=== PATIENT | male | born 1995 | race Caucasian/White ===

== ENCOUNTER 2017-03-21 17:40 | Emergency (ER) | payer SELFPAY ==
[2017-03-21] MEDS ORDERED: Lidocaine 1% MPF wEPI 200,000* 30 ML SDV INJ ONE (18:27)
[2017-03-21] MEDS ORDERED: Acetaminophen TAB* 325 MG PO ONE (19:07)
--- NOTE | 2017-03-21 19:09 | UC ---
Kenyon Gupta Thomas, scribed for Viry Winchester MD on 03/21/17 at 1818 . Laceration HPI - HPI Summary HPI Summary: The pt is a 21 y/o M referred from [facility] c/o with a laceration to his forehead. He was playing basketball when he was struck in the head by an elbow today at 16:30. He says that there was a lot of blood shortly after the accident. He applied pressure to the laceration with his shirt shortly after the injury. The pain is rated 2/10. 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 He complains of a headache byt the cut. Pt denies LOC, blood out of ears/nose/mouth, vision problems. No neck or lna pain. No LOC. No other injuries or complaints. Pt was given a tdap at [facility]. He is not on any blood thinners. He did not take any Adderall today, and he did not drink any alcohol today. Patients medication reviewed this visit. - History Of Current Complaint Chief Complaint: UCLaceration Stated Complaint: FACE LACERATION Time Seen by Provider: 03/21/17 17:56 Hx Obtained From: Patient Laceration Location: Head - forehead Mechanism Of Injury: Blunt Trauma - by elbow Onset/Duration: Sudden Onset, Lasting Hours - onset three hours ago, Still Present Pain Intensity: 2 Pain Scale Used: 0-10 Numeric Aggravating Factors: Movement Related History: Other: - He took an elbow to his head playing basketball - Allergies/Home Medications Allergies/Adverse Reactions: Allergies Allergy/AdvReac Type Severity Reaction Status Date / Time No Known Allergies Allergy Verified 03/21/17 18:02 Home Medications: Home Medications Amphetamine MIXED SALT TAB* [Adderall TAB*] 20 mg PO DAILY PRN 03/21/17 [ History Confirmed 03/21/17] PMH/Surg Hx/FS Hx/Imm Hx Previously Healthy: Yes Endocrine History: Other Other Endocrine History: NEG: thyroid disease Respiratory History: Other Other Respiratory History: NEG: asthma - Surgical History Surgical History: None - Family History Known Family History: Negative: Hypertension, Diabetes - Social History Occupation: Student Lives: Dormitory/Roommates - off campus house with housemates Alcohol Use: Weekly Substance Use Type: Marijuana Smoking Status (MU): Never Smoked Tobacco - Immunization History Most Recent Tetanus Shot: today Review of Systems Constitutional: Other - NEG: fever Skin: Other - Laceration to forehead ENT: Other - NEG: blood out of ears/nose/mouth Musculoskeletal: Other: - neg back, neck pain Neurological: Headache, Other - NEG: LOC All Other Systems Reviewed And Are Negative: Yes Physical Exam Triage Information Reviewed: Yes Appearance: Well-Appearing, No Pain Distress, Well-Nourished Vital Signs: Initial Vital Signs Temp 98.6 F 03/21/17 17:56 Pulse 70 03/21/17 17:56 Resp 20 03/21/17 17:56 BP 104/66 03/21/17 17:56 Pulse Ox 100 03/21/17 17:56 Vital Signs Reviewed: Yes Eye Exam: Normal Eyes: Positive: Conjunctiva Clear, Other: - WALLACE, EOM intact and full No injection no crepitus no step offs minimal discomfort with palpation over wound ENT Exam: Normal ENT: Positive: Normal ENT inspection, Hearing grossly normal, Pharynx normal, TMs normal, Other: - no hemotymp b/l No septal hematoma b/l no TMJ pain Dental Exam: Normal Neck exam: Normal Neck: Positive: Supple, Nontender, No Lymphadenopathy, Other: - no pain c/t/l/s Respiratory Exam: Normal Respiratory: Positive: Chest non-tender, Lungs clear, Normal breath sounds, No respiratory distress, No accessory muscle use Cardiovascular Exam: Normal Cardiovascular: Positive: RRR, No Murmur, Pulses Normal Abdominal Exam: Normal Abdomen Description: Positive: Nontender, No Organomegaly, Soft Musculoskeletal Exam: Normal Neurological Exam: Normal Psychological Exam: Normal Skin Exam: Other - pt with 2.5cm laceration over and including mid to lateral 1/ 3 eyebrow. wound gap 1cm no active bleeding - wound horizontal plane no extension through brow or eyelid no loss of facial muscle movement Laceration Repair - Laceration Repair 1 Description: Linear - Pt preppred in sterile conditioin wound with good approximation and closure d/w pt at length wound care, injected with 1% lidocaine total 3ml under sterile condition irrigated wuth 250ml saline under pressure 1 chromic gut suture with for subcutaneous tissue approximation skin closed with simple interrupted 6-0 prolene s/s infection suture remove return precautions pt states understanding Laceration Size After Repair: Length (cm) - 2.5, Width (mm) - 10 Modified For Repair: No Type Injection: Local Anesthesia Used: 1.0% Lido - 1.5 Additive Used (in ml): Epi Cleansing Completed Via Routine Prep: Yes Irrigation With Pressure Irrigation Device: Yes Closure Material: Sutures Closure Method: Multilayer Suture Of: Skin Suture Type: Prolene, Other - chromic gut - 4-0 suture - #1 6-0 prolene #7 Laceration Course/Dx - Course/Dx Course Of Treatment: The pt is a 21 y/o M referred from [facility] c/ o with a laceration to his forehead. He was playing basketball when he was struck in the head by an elbow today at 16:30. He complains of a headache. Pt denies LOC, blood out of ears/nose/mouth, vision problems. Pt with laceration to left upper eye brown. suture with good approximation. Pt tolerated well. d /w pt wound care. s/s infection. keflex. suture care and removal discussed. Offered to speak with pt's parents, pt declined. Pt has housemates that will be home tonight - Differential Dx - Laceration/Wound Provider Diagnoses: facial laceration Discharge - Discharge Plan Condition: Stable Disposition: HOME Prescriptions: Cephalexin CAP* [Keflex CAP*] 250 mg PO TID #15 cap Patient Education Materials: Facial Laceration (ED) Referrals: No Primary Care Phys,NOPCP [Primary Care Provider] - [facility] [Provider Group] Additional Instructions: - your stitches should come out in 4-5 days - you can return here, go to your Doctor or any urgent care center - okay to alternate ibuprofin (advil, motrin) and tylenol every 3hours as needed for pain -Keep your wound clean and dry - no soaking for 24 hours. Then, okay for wound to get wet - pat dry, don't rub -apply a thin layer of antibiotic ointment (neosporin, polysporin) 2-3 times a day - when you have a cut, you will have a scar. To minimize scar formation - keep your wound clean - monitor for signs of infection - reddness, red streaking, odor, green drainage -Once sutures out - keep your wound out of direct sun (wear a hat or sun screen ) - it may take up to 8 months for your scar to reach its final state - Contact your doctor or return here with questions or concerns - Go to the [facility] on campus or return if you have questions or concerns The documentation as recorded by the Kenyon haro Thomas accurately reflects the service I personally performed and the decisions made by me, Viry Winchester MD.
== END 2017-03-21 19:24 | disposition home or self-care (01) ==
LOC: UCEAST 17:40
DX: S01.81XA Laceration without foreign body of other part of head, initial encounter (principal); W50.0XXA Accidental hit or strike by another person, initial encounter; Y93.67 Activity, basketball; Y92.310 Basketball court as the place of occurrence of the external cause; F12.90 Cannabis use, unspecified, uncomplicated
CPT/HCPCS: 12011; 99211; A9270-GY; G0463; J2001

== ENCOUNTER 2017-03-27 19:02 | Emergency (ER) | payer SELFPAY ==
--- NOTE | 2017-03-27 23:02 | UC ---
Laceration HPI - HPI Summary HPI Summary: Patient presents to with suture removal to the left buddhist. He states he injured it 6 days ago and was told to return today for removal. Denies redness, warmth, swelling or other complaints at this time. He is otherwise healthy. He has had no issues with the sutures. - History Of Current Complaint Chief Complaint: UCGeneralIllness Stated Complaint: SUTURE REMOVAL Time Seen by Provider: 03/27/17 19:47 Hx Obtained From: Patient Laceration Location: Head Mechanism Of Injury: Blunt Trauma Onset/Duration: Sudden Onset Severity: Mild Pain Intensity: 0 Pain Scale Used: 0-10 Numeric Aggravating Factors: Nothing - Allergies/Home Medications Allergies/Adverse Reactions: Allergies Allergy/AdvReac Type Severity Reaction Status Date / Time No Known Allergies Allergy Verified 03/27/17 19:45 PMH/Surg Hx/FS Hx/Imm Hx Previously Healthy: Yes - Surgical History Surgical History: None - Family History Known Family History: Negative: Hypertension, Diabetes - Social History Occupation: Employed Part-time Lives: With Family Alcohol Use: Weekly Substance Use Type: Marijuana Smoking Status (MU): Never Smoked Tobacco - Immunization History Most Recent Tetanus Shot: today Review of Systems Constitutional: Negative Skin: Other - 7 sutures to be removed ENT: Negative Respiratory: Negative Cardiovascular: Negative Neurovascular: Negative Musculoskeletal: Negative Neurological: Negative Is Patient Immunocompromised?: No All Other Systems Reviewed And Are Negative: Yes Physical Exam Triage Information Reviewed: Yes Appearance: Well-Appearing, Well-Nourished Vital Signs: Initial Vital Signs Temp 98.0 F 03/27/17 19:43 Pulse 43 03/27/17 19:43 Resp 16 03/27/17 19:43 BP 114/69 03/27/17 19:43 Pulse Ox 100 03/27/17 19:43 Vital Signs Reviewed: Yes Eye Exam: Normal Eyes: Positive: Conjunctiva Clear Neck exam: Normal Neck: Positive: Supple, No Lymphadenopathy Respiratory Exam: Normal Respiratory: Positive: Chest non-tender Cardiovascular Exam: Normal Cardiovascular: Positive: RRR Neurological Exam: Normal Neurological: Positive: Alert Psychological: Positive: Normal Response To Family, Age Appropriate Behavior Skin: Positive: Other - 7 sutures placed over left buddhist Laceration Course/Dx - Course/Dx Course Of Treatment: 7 sutures removed. patient tolerated well. - Differential Dx - Laceration/Wound Differental Diagnoses: Puncture Wound, Suture Removal Provider Diagnoses: Suture removal Discharge - Discharge Plan Condition: Stable Disposition: HOME Patient Education Materials: Stitches Removal (ED) Referrals: No Primary Care Phys,NOPCP [Primary Care Provider] -
== END 2017-03-27 20:22 | disposition home or self-care (01) ==
LOC: UCEAST 19:02
DX: S01.81XD Laceration without foreign body of other part of head, subsequent encounter (principal); X58.XXXD Exposure to other specified factors, subsequent encounter; F12.90 Cannabis use, unspecified, uncomplicated

== ENCOUNTER 2018-04-10 21:17 | Emergency (ER) | payer OTHER ==
[2018-04-11] MEDS ORDERED: Cyclobenzaprine TAB* 10 MG PO ONE (01:07)
--- NOTE | 2018-04-11 01:09 | ED ---
Back Pain - HPI Summary HPI Summary: 22 male presents with back pain for the past couple days. He states it is located one area in his left shoulder/upper back. He states that breathing and movement makes it worse. He denies any chest pain. He denies any bowel pain. He states pain does not radiate anywhere. He denies any pain into his arms. No numbness or tingling. No weakness. He says some ibuprofen and cracking his back with some relief. - History of Current Complaint Chief Complaint: EDBackInjuryPain Stated Complaint: BACK PAIN Time Seen by Provider: 04/11/18 00:32 Pain Intensity: 4 - Allergies/Home Medications Allergies/Adverse Reactions: Allergies Allergy/AdvReac Type Severity Reaction Status Date / Time No Known Allergies Allergy Verified 03/27/17 19:45 Home Medications: Home Medications Ibuprofen 600 mg PO Q6HR PRN 04/11/18 [History Confirmed 04/11/18] PMH/Surg Hx/FS Hx/Imm Hx Endocrine/Hematology History: Denies: Hx Diabetes, Hx Thyroid Disease Cardiovascular History: Denies: Hx Hypertension Respiratory History: Denies: Hx Asthma, Hx Chronic Obstructive Pulmonary Disease (COPD) GI History: Denies: Hx Ulcer Infectious Disease History: No Infectious Disease History: Denies: Hx Clostridium Difficile, Hx Hepatitis, Hx Human Immunodeficiency Virus (HIV), Hx of Known/Suspected MRSA, Hx Shingles, Hx Tuberculosis, Hx Known/ Suspected VRE, Hx Known/Suspected VRSA, History Other Infectious Disease, Traveled Outside the [place] in Last 30 Days - Family History Known Family History: Negative: Hypertension, Diabetes - Social History Alcohol Use: Weekly Substance Use Type: Reports: Marijuana Smoking Status (MU): Never Smoked Tobacco Review of Systems Negative: Fever Negative: Chest Pain Negative: Shortness Of Breath Positive: Myalgia - back pain All Other Systems Reviewed And Are Negative: Yes Physical Exam Triage Information Reviewed: Yes Vital Signs On Initial Exam: Initial Vitals Temp Pulse Resp BP Pulse Ox 98.0 F 66 15 145/79 99 04/10/18 21:28 04/10/18 21:28 04/10/18 21:28 04/10/18 21:28 04/10/18 21:28 Vital Signs Reviewed: Yes Appearance: Positive: Well-Appearing Skin: Positive: Warm, Dry Head/Face: Positive: Normal Head/Face Inspection Eyes: Positive: Normal, Conjunctiva Clear ENT: Positive: Pharynx normal Respiratory/Lung Sounds: Positive: Clear to Auscultation, Breath Sounds Present Cardiovascular: Positive: Normal, RRR Musculoskeletal: Positive: Strength/ROM Intact - back, Other - tenderness left side of upper back at T6 area but no midline tenderness, good pulses, normal 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 Back Pain Course/Dx - Course Course Of Treatment: 22 male presents with back pain for the past couple days. He states it is located one area in his left shoulder/upper back. He states that breathing and movement makes it worse. He denies any chest pain. He denies any bowel pain. He states pain does not radiate anywhere. He denies any pain into his arms. No numbness or tingling. No weakness. He says some ibuprofen and cracking his back with some relief. On exam tenderness over left side of back approximately at T6 area on the side of his back. No midline tenderness. D-dimer is negative. Discuss likely muscular. Told to continue ibuprofen and we'll add a muscle relaxer. Patient understands agrees the plan. - Diagnoses Differential Diagnosis/HQI/PQRI: Positive: Herniated Disc, Strain, Sprain Provider Diagnoses: Back pain Discharge - Sign-Out/Discharge Documenting (check all that apply): Patient Departure - Discharge Plan Condition: Good Disposition: HOME Prescriptions: Cyclobenzaprine TAB* [Flexeril 10 MG TAB*] 10 mg PO TID PRN #15 tab PRN Reason: Pain Patient Education Materials: Back Pain (ED) Referrals: No Primary Care Phys,NOPCP [Primary Care Provider] - Additional Instructions: Take muscle relaxers three times a day Use ibuprofen or Tylenol for pain every 6 hours ice/heat area, move as much as possible Follow up with primary within 5 days Return to ED if develop any new or worsening symptoms - Billing Disposition and Condition Condition: GOOD Disposition: Home
[2018-04-11 01:35] VITALS: BP 129/70
== END 2018-04-11 01:41 | disposition home or self-care (01) ==
LOC: ED 21:17
DX: M54.9 Dorsalgia, unspecified (principal)
CPT/HCPCS: 36415; 85379; 99282; A9270-GY

== ENCOUNTER 2018-06-09 17:55 | Emergency (ER) | payer OTHER ==
--- NOTE | 2018-06-09 18:25 | ED ---
Lower Extremity - HPI Summary HPI Summary: 22 year old male presents with right ankle pain x 4 days after injuring his ankle playing basketball on . Patient states he inverted his foot and it hurt immediately, but he was able to walk on it. He continued playing basketball and walking on his ankle and the pain has been getting worse. Patient states today he is unable to bear any weight or walk without being in pain. Patient states he has been resting his ankle and taking Advil for pain with some relief but as soon as he starts to walk on it the pain is 10/10. Patient states he is able to move his toes and foot, denies any numbness or tingling of the affected limb. Patient states the pain is mainly located to the right lateral ankle with some radiation up his calf when he tries to stand. Denies history of blood clots. Denies fevers, chills, N/V, chest pain, SOB. Takes adderall on school days to treat ADHD. - History of Current Complaint Chief Complaint: EDExtremityLower Stated Complaint: RIGHT ANKLE INJURY Time Seen by Provider: 06/09/18 18:04 Hx Obtained From: Patient Mechanism Of Injury: Twisted Onset of Pain: Immediate Onset/Duration: Worse Since Severity Initially: Moderate Severity Currently: Moderate Pain Intensity: 6 Location: Is Discrete @ - lateral right ankle Character Of Pain: Sharp Aggravating Factor(s): Standing, Ambulation Alleviating Factor(s): Rest, Elevation, Ice, OTC Meds - Advil Able to Bear Weight: No - Allergies/Home Medications Allergies/Adverse Reactions: Allergies Allergy/AdvReac Type Severity Reaction Status Date / Time No Known Allergies Allergy Verified 06/09/18 18:03 PMH/Surg Hx/FS Hx/Imm Hx Previously Healthy: Yes Endocrine/Hematology History: Denies: Hx Diabetes, Hx Thyroid Disease Cardiovascular History: Denies: Hx Hypertension Respiratory History: Denies: Hx Asthma, Hx Chronic Obstructive Pulmonary Disease (COPD) GI History: Denies: Hx Ulcer Infectious Disease History: No Infectious Disease History: Denies: Hx Clostridium Difficile, Hx Hepatitis, Hx Human Immunodeficiency Virus (HIV), Hx of Known/Suspected MRSA, Hx Shingles, Hx Tuberculosis, Hx Known/ Suspected VRE, Hx Known/Suspected VRSA, History Other Infectious Disease, Traveled Outside the [place] in Last 30 Days - Family History Known Family History: Negative: Hypertension, Diabetes - Social History Alcohol Use: Weekly Substance Use Type: Reports: Marijuana Smoking Status (MU): Never Smoked Tobacco Review of Systems Negative: Fever, Chills, Fatigue Negative: Chest Pain Negative: Shortness Of Breath Negative: Abdominal Pain, Vomiting, Nausea Positive: Other - swelling and redness of right ankle/foot Negative: Paresthesia, Numbness All Other Systems Reviewed And Are Negative: Yes Physical Exam Triage Information Reviewed: Yes Vital Signs On Initial Exam: Initial Vitals Temp Pulse Resp BP Pulse Ox 97.7 F 83 16 134/91 98 06/09/18 18:00 06/09/18 18:00 06/09/18 18:00 06/09/18 18:00 06/09/18 18:00 Vital Signs Reviewed: Yes Appearance: Positive: Well-Appearing Skin: Positive: Warm, Skin Color Reflects Adequate Perfusion, Dry Head/Face: Positive: Normal Head/Face Inspection Eyes: Positive: Normal, Conjunctiva Clear ENT: Positive: Pharynx normal Respiratory/Lung Sounds: Positive: Clear to Auscultation, Breath Sounds Present Cardiovascular: Positive: Normal, RRR Musculoskeletal: Positive: Limited @ - right ankle, Edema Right - lateral malleolus, Other - tenderness lateral malleolus right ankle, good pulses, sensation grossly intact Neurological: Positive: Normal Psychiatric: Positive: Normal Procedures - Splinting ankle Location: right ankle Hand-Made Type: orthoglass Splint: sugar-tong Pre-Proc Neuro Vasc Exam: normal Post-Proc Neuro Vasc Exam: normal Diagnostics - Vital Signs Vital Signs Temp Pulse Resp BP Pulse Ox 06/09/18 18:00 97.7 F 83 16 134/91 98 - Laboratory Lab Statement: Any lab studies that have been ordered have been reviewed, and results considered in the medical decision making process. - Radiology ankle Radiology Interpretation Completed By: ED Physician Summary of Radiographic Findings: fibula fracture Lower Extremity Course/Dx - Course Course Of Treatment: 22 year old male presents with 4 day history of ankle pain after injuring ankle playing basketball. Patient states the pain has been worsening and today he is unable to bear weight or ambulate. Patient states the pain is minimal when resting, rates as 10/10 when he tries to ambulate. Rest, Ice, Advil improves his pain. Physical exam was remarkable for discrete tenderness of the anterior, lateral malleolus of the right ankle. Distal pulses 2+ bilaterally. Right foot and ankle are edematous and erythematous. xray shows fibula fracture. placed in sugar tong splint. will have follow up with ortho. patient understand and agrees with plan. - Diagnoses Differential Diagnosis/HQI/PQRI: Positive: Contusion, Fracture (Closed), Sprain Provider Diagnoses: Fibula fracture Discharge - Sign-Out/Discharge Documenting (check all that apply): Patient Departure - Discharge Plan Condition: Good Disposition: HOME Patient Education Materials: Ankle Fracture (ED) Referrals: Elida Love MD [Medical Doctor] - Additional Instructions: Use crutches Keep splint on area and keep dry Call ortho office to set up appointment for follow up Use ibuprofen or tyenlol for pain every 6 hours Ice, elevate Return to ED if develop any new or worsening symptoms - Billing Disposition and Condition Condition: GOOD Disposition: Home
[2018-06-09 18:58] VITALS: BP 121/88
== END 2018-06-09 18:55 | disposition home or self-care (01) ==
LOC: ED 17:55
DX: S82.831A Other fracture of upper and lower end of right fibula, initial encounter for closed fracture (principal); X50.9XXA Other and unspecified overexertion or strenuous movements or postures, initial encounter; Y93.67 Activity, basketball; Y92.9 Unspecified place or not applicable; F90.9 Attention-deficit hyperactivity disorder, unspecified type
CPT/HCPCS: 29515; 99281